=== PATIENT | male | born 1970 | race Caucasian/White ===

== ENCOUNTER → 2022-06-18 13:17 | Outpatient (BNVA) | payer BC, SELFPAY | PROVIDERS: Family Provider Nurse Practitioner Family; PCP Family Medicine; Visit Provider Emergency Medicine | DX: J02.9 Acute pharyngitis, unspecified (principal); J00 Acute nasopharyngitis [common cold]; J40 Bronchitis, not specified as acute or chronic | CPT/HCPCS: 87071; 87880 ==

== ENCOUNTER 2023-08-22 15:12 | Emergency (ER) | payer OTHER, BC, SELFPAY ==
[2023-08-22] VITALS (7 sets, daily range): BP systolic 110–139; BP diastolic 61–88; PULSE 72–100; RESP 16–18; TEMP 36.8; O2SAT 94–98; BMI 27.5
--- NOTE | 2023-08-22 16:09 | XRR_ITS ---
PROCEDURE INFORMATION: Exam: XR Chest Exam date and time: 08/22/2023 4:39 PM Age: 53 years old Clinical indication: Cough TECHNIQUE: Imaging protocol: Radiologic exam of the chest. Views: 1 view. COMPARISON: No relevant prior studies available. FINDINGS: Lungs: Low lung volumes with basilar atelectasis. No definitive consolidation. Pleural spaces: No pleural effusion or pneumothorax. Heart/Mediastinum: Unremarkable. No cardiomegaly. Bones/joints: No acute osseous abnormalities are seen. XR/XR chest 1V [id number] IMPRESSION: No acute cardiopulmonary disease.
[2023-08-22 17:08] LABS: Influenza A by IFA negative (Negative); Influenza B by IFA negative (Negative); SARS Covid-2 Antigen negative (Negative)
--- NOTE | 2023-08-22 18:15 | ECG_ITS ---
[facility] Test Date: 2023-08-22 Pat Name: Jay Pardo Department: Room: Gender: Male Complaint Adjuster: : 1970 Requested By: Jeremiah Singh Order Number: [id number] Maria Elena MD: Kate Grayson M.D. Measurements Intervals [place] Rate: 81 P: 57 VT: 153 QRS: 35 QRSD: 79 T: 25 QT: 347 QTc: 404 Interpretive Statements SINUS RHYTHM No previous ECG available for comparison Electronically Signed On 08-22-2023 19:58:35 CDT by Kate Grayson M.D. [id number]
[2023-08-22 19:00] LABS: Basophils # 0.1 10^3/uL (0.0-0.1); Basophils % 1.1 %; Eosinophils # 0.2 10^3/uL (0.0-0.8); Eosinophils % 1.5 %; Lymphocytes # 8.5 10^3/uL (0.8-4.8); Lymphocytes % 68.9 %; Mean Corpuscular HGB Conc 35.2 g/dL (30-55); Mean Corpuscular Hemoglobin 30.8 pg (27-33); Mean Corpuscular Volume 87.5 fl (82-101); Mean Platelet Volume 8.8 fL (7.4-10.4); Monocytes # 0.6 10^3/uL (0.2-0.9); Monocytes % 5.2 %; Neutrophils # 2.79 10^3/uL (1.8-7.7); Neutrophils % 22.7 %; Nucleated Red Blood Cells % 0 %; Platelet Count 227 10^3/cmm (157-399); Red Cell Distribution Width 12.4 % (12.1-15.1); White Blood Count 12.32 10^3/uL (3.29-11.43)
[2023-08-22] MEDS: sodium chloride 0.9% 500 ML 999 ML IV (19:00)
[2023-08-22 19:19] LABS: Troponin(5th) Baseline 7 ng/L (0-15)
[2023-08-22 19:42] LABS: Alanine Aminotransferase 86 U/L (0-41); Albumin Level 3.7 g/dL (3.5-5.2); Alkaline Phosphatase 131 U/L (40-130); Aspartate Amino Transferase 86 U/L (0-40); Blood Urea Nitrogen 11 mg/dL (6-20); Calcium 7.8 mg/dL (8.5-10.5); Carbon Dioxide 25 mmol/L (22-29); Chloride 97 mmol/L (98-107); Creatinine Clr Calc Pharmacy 105.5761; Globulin 2.5 g/dL (1.3-4.6); Glomerular Filtration Rate 88.3 mL/min (90-130); Glucose 120 mg/dL (65-115); NT Pro B Type Natriuretic Pept < 36 pg/mL (0-125); Osmolality Calculated 275 mOsm/kg (285-295); Sodium 132 mmol/L (136-145); Total Bilirubin 0.7 mg/dL (0.15-1.2); Total Protein 6.2 g/dL (6.6-8.7)
[2023-08-22 19:43] LABS: Anion Gap 14.3 (5-19); Potassium 4.3 mmol/L (3.5-5.1)
--- NOTE | 2023-08-22 19:53 | CTR_ITS ---
PROCEDURE INFORMATION: Exam: CT Chest Without Contrast; Diagnostic Exam date and time: 08/22/2023 8:07 PM Age: 53 years old Clinical indication: Abnormal findings; Abnormal diagnostic tests; Abnormal ekg; Cough and fever; Patient HX: Cough with fever and elevated wbc. ; Additional info: Cough fever TECHNIQUE: Imaging protocol: Diagnostic computed tomography of the chest without contrast. Radiation optimization: All CT scans at this facility use at least one of these dose optimization techniques: automated exposure control; mA and/or kV adjustment per patient size (includes targeted exams where dose is matched to clinical indication); or iterative reconstruction. COMPARISON: CR (CHEST, ) 08/22/2023 4:39 PM RADIATION DOSE METRICS: Total DLP (mGy-cm): 456.31 FINDINGS: Lungs: Breathing artifact significantly limits evaluation of the lungs, particularly lung bases. Moderate posterior lower lobe atelectatic change. No definitive consolidation. No pulmonary mass or obvious pulmonary nodules identified. Pleural spaces: No pleural effusion or pneumothorax. Heart: Mild cardiomegaly. No pericardial effusion or pericardial thickening. Coronary arteries: Mild coronary artery calcification. Lymph nodes: There are no enlarged mediastinal or axillary lymph nodes. The shawn are not well evaluated due to lack of intravenous contrast. Calcified mediastinal lymph nodes are noted. Vasculature: The aorta is normal in course and caliber. No significant atherosclerotic calcifications are present. Spleen: Calcified splenic granulomata are incidentally noted. Bones/joints: No acute osseous abnormalities are seen. Soft tissues: The soft tissues are within normal limits. CT/CT chest wo con [id number] IMPRESSION: 1. Moderate posterior lower lobe atelectatic change. 2. Old granulomatous disease. 3. No definitive evidence of acute cardiopulmonary disease.
[2023-08-22] MEDS: sodium chloride 0.9% 1,000 ML 999 ML IV (19:59)
--- NOTE | 2023-08-22 20:15 | ECG_ITS ---
[facility] Test Date: 2023-08-22 Pat Name: Jay Pardo Department: Room: Gender: Male Panel Wirer: : 1970 Requested By: Jeremiah Singh Order Number: [id number] Maria Elena MD: Kate Grayson M.D. Measurements Intervals [place] Rate: 73 P: 67 MD: 165 QRS: 33 QRSD: 90 T: 25 QT: 390 QTc: 432 Interpretive Statements SINUS RHYTHM Compared to ECG 08/22/2023 18:22:55 No significant changes Electronically Signed On 08-22-2023 20:22:14 CDT by Kate Grayson M.D. [id number]
[2023-08-22 21:02] LABS: Troponin 5 2HR 6.94 ng/L (0-15)
[2023-08-22 21:03] LABS: Troponin 5 2HR Delta -0.06 ABS# (0-10)
--- NOTE | 2023-08-22 21:35 | ED_ITS ---
HPI - General Adult 2 General: Chief complaint: General Medical Stated complaint: sob Time Seen by Provider: 08/22/23 16:46 History of Present Illness: 53-year-old seemingly healthy male that presents with fevers, chills, fatigue and malaise. Onset 2 weeks ago. Symptoms are not relenting. He seen a primary care without any change in his symptoms. Patient reports that symptoms began approximately 2 weeks ago. His coworker was ill just before. 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 He believes that this is what has caused his symptoms. He states he wakes up in the [place] with night sweats and his face is burning and he has fevers. He takes Tylenol without relief. He is sleeping more. Generally family is very concerned about him. Tmax 101.5 Denies tick bites Associated symptoms: Reports malaise; Deny chest pain, dyspnea or palpitations Review of Systems 2 Const: Reports: fever(s), chills, change in appetite, fatigue, malaise, night sweats, change in sleep pattern and daytime sleepiness ENMT: Reports: throat pain, nasal discharge, nasal congestion and other (losing voice ); Denies: ear or mastoid pain Card: Denies: chest pain, palpitations or irregular heart rhythm Resp: Reports: non-productive cough; Denies: dyspnea, productive cough or wheezing GI: Denies: abdominal pain or change in bowel habits Musc: Denies: neck pain or back pain Skin/Breast: Denies: pruritus Psych: Denies: anxiety, depression or suicidal ideation PFSH ED 2 PFSH: Social History Smoking and tobacco/nicotine status: never used tobacco/nicotine Physical Exam 2 Const: COMMON NORMALS: patient oriented x3 and alert EXAM LIMITATIONS: no altered mental status GENERAL APPEARANCE: cooperative O RIENTATION/CONSCIOUSNESS: Yes oriented to person and Yes oriented to place Eye: COMMON NORMALS: Equal, round and reactive pupils present and conjunctivae normal CONJUNCTIVA: Yes conjunctivae normal PUPIL: Yes Equal, round and reactive pupils present Resp: COMMON NORMALS: normal respiratory effort, No use of accessory muscles and clear to auscultation bilaterally EFFORT & INSPECTION: No respiratory distress AUSCULTATION: clear to auscultation bilaterally Cardio: COMMON NORMALS: regular rate, regular rhythm, S1 normal heart sound present, S2 normal heart sound present and Peripheral pulses 2+ throughout R ATE: regular rate RHYTHM: regular rhythm HEART SOUNDS: S1 normal heart sound present and S2 normal heart sound present PERIPHERAL PULSES: Peripheral pulses 2+ throughout Back/Pelvis: COMMON NORMALS: thoracic and lumbar spine normal to inspection Neuro: COMMON NORMALS: patient oriented x3 SENSORIUM/ORIENTATION: Yes alert, Yes oriented to person and Yes oriented to place CRANIAL NERVES: Yes CN normal except as noted GAIT: Yes Normal gait present Psych: APPEARANCE: Yes grossly normal ATTITUDE: Yes calm Course 2 Vital Signs: Vital signs: Vital Signs Temperature 98.3 F 08/22/23 15:29 Pulse Rate 72 08/22/23 20:30 Respiratory Rate 18 08/22/23 20:30 Blood Pressure 115/67 08/22/23 20:30 Pulse Oximetry 97 08/22/23 20:30 Oxygen Delivery Me thod Room Air 08/22/23 20:30 MDM - General Adult Medical Decision Making Patient was evaluated in the emergency department today for complaints of generalized malaise fatigue and fevers. Patient's had symptoms for the last 2 weeks. He has seen his primary care doctor who was at a loss. He was started on prednisone. patient has not felt any better. He still running fevers at night. here in the emergency department I got a CBC, CMP, EKG, troponin series. Chest x-ray and ultimately a CT of his chest was completed. He has bibasilar atelectasis but no consolidations. He has mildly elevated white count. He has been on 40 mg of prednisone for 5 days. I would anticipate it being higher. His liver enzymes are elevated as well. I have ordered a hepatitis panel and I have ordered a tick panel. These will take some time to work and allow the patient to discharge home. He is going to follow-up with his primary care doctor Thursday or Thursday to discuss further. Patient has been instructed to return to the emergency department for new, concerning, worsening symptoms Lab Data 08/22/23 18:51 08/22/23 18:51 Radiology Impressions Chest X-Ray 08/22/23 16:09 IMPRESSION: No acute cardiopulmonary disease. Chest CT 08/22/23 19:53 IMPRESSION: 1. Moderate posterior lower lobe atelectatic change. 2. Old granulomatous disease. 3. No definitive evidence of acute cardiopulmonary disease. Laboratory Results WBC 12.32 10^3/uL (3.29-11.43) H 08/22/23 18:51 RBC 4.80 10^6/uL (3.85-5.65) 08/22/23 18:51 Hgb 14.80 g/dL (11.27-16.99) 08/22/23 18:51 Hct 42.0 % (37-53) 08/22/23 18:51 MCV 87.5 fl (82-101) 08/22/23 18:51 MCH 30.8 pg (27-33) 08/22/23 18:51 MCHC 35.2 g/dL (30-55) 08/22/23 18:51 RDW 12.4 % (12.1-15.1) 08/22/23 18:51 Plt Count 227 10^3/cmm (157-399) 08/22/23 18:51 MPV 8.8 fL (7.4-10.4) 08/22/23 18:51 Neut % (Auto) 22.7 % 08/22/23 18:51 Lymph % (Auto) 68.9 % 08/22/23 18:51 Fisher % (Auto) 5.2 % 08/22/23 18:51 Eos % (Auto) 1.5 % 08/22/23 18:51 Baso % (Auto) 1.1 % 08/22/23 18:51 Neut # (Auto) 2.79 10^3/uL (1.8-7.7) 08/22/23 18:51 Lymph # (Auto) 8.5 10^3/uL (0.8-4.8) H 08/22/23 18:51 Fisher # (Auto) 0.6 10^3/uL (0.2-0.9) 08/22/23 18:51 Eos # (Auto) 0.2 10^3/uL (0.0-0.8) 08/22/23 18:51 Baso # (Auto) 0.1 10^3/uL (0.0-0.1) 08/22/23 18:51 Nucleated RBC % (auto) 0 % 08/22/23 18:51 Nucleated RBCs # 0.0 /100WBC 08/22/23 18:51 Sodium 132 mmol/L (136-145) L 08/22/23 18:51 Potassium 4.3 mmol/L (3.5-5.1) 08/22/23 18:51 Chloride 97 mmol/L (98-107) L 08/22/23 18:51 Carbon Dioxide 25 mmol/L (22-29) 08/22/23 18:51 Anion Gap 14.3 (5-19) 08/22/23 18:51 BUN 11 mg/dL (6-20) 08/22/23 18:51 Creatinine 0.9 mg/dL (0.7-1.2) 08/22/23 18:51 GFR Calculation 88.3 mL/min (90-130) L 08/22/23 18:51 Glucose 120 mg/dL (65-115) H 08/22/23 18:51 Calculated Osmolality 275 mOsm/kg (285-295) L 08/22/23 18:51 Calcium 7.8 mg/dL (8.5-10.5) L 08/22/23 18:51 Total Bilirubin 0.7 mg/dL (0.15-1.2) 08/22/23 18:51 AST 86 U/L (0-40) H 08/22/23 18:51 ALT 86 U/L (0-41) H 08/22/23 18:51 Alkaline Phosphatase 131 U/L (40-130) H 08/22/23 18:51 Troponin T Baseline 7 ng/L (0-15) 08/22/23 18:51 Troponin T 120 Minute 6.94 ng/L (0-15) 08/22/23 20:28 Delta Troponin T -0.06 ABS# (0-10) L 08/22/23 20:28 NT-Pro-B Natriuret Pep < 36 pg/mL (0-125) 08/22/23 18:51 Total Protein 6.2 g/dL (6.6-8.7) L 08/22/23 18:51 Albumin 3.7 g/dL (3.5-5.2) 08/22/23 18:51 Globulin 2.5 g/dL (1.3-4.6) 08/22/23 18:51 Influenza Type A Ag negative (Negative) 08/22/23 16:38 Influenza Type B Ag negative (Negative) 08/22/23 16:38 SARS-CoV-2 Ag (Rapid) negative (Negative) 08/22/23 16:38 All radiology interpretation(s) finalized by discharge Discharge Plan Discharge Patient Disposition: Home Clinical Impression: Transaminitis, Fever, low grade, Malaise and fatigue Condition: Stable Prescriptions: No Action acetaminophen [Tylenol] 325 mg capsule 325 mg PO QID PRN fluticasone propionate 50 mcg/actuation spray,suspension 1 spray intranasal DAILY PRN (Reason: allergy symptoms) Qty: 16 0RF Rx Instructions: administer into each nostril prednisone 20 mg tablet 40 mg PO daily Qty: 10 0RF Discharge Orders: Discharge ED (Routine); Ordered 08/22/23 Ordered By: Jeremiah Fritz Referrals: Eladio Dalton [Primary Care Provider] - Discharge Diet: Advance as tolerated Discharge Activity: Resume usual activity Activity Restrictions/Additional Instructions: As discussed, your liver enzymes are elevated. This could be from a number of reasons. Currently have a tick panel and hepatitis panel pending. I want you to avoid Tylenol for now. You can use ibuprofen or Motrin for pain and fevers. Avoid alcohol. Please follow-up with your doctor Thursday or Thursday. I have given you Thursday and Thursday off from work. This is because you need to follow-up with primary care. Stand Alone Forms: Work/School Release Coding Level of Care Code ED Contact Representative for Daly Rice
[2023-08-22 22:46] LABS: Hepatitis A Antibody IgM Non-Reactive (Nonreactive); Hepatitis B Core IgM Non-Reactive (Nonreactive); Hepatitis B Surface Antigen Non-Reactive (Nonreactive); Hepatitis C Virus Antibody Non-Reactive (Nonreactive)
[2023-08-24 16:45] LABS: Lyme AB Screen <0.90 index
[2023-08-27 16:50] LABS: E. Chaffeensis AB IGG <1:64; E. Chaffeensis AB IGM <1:20; RMSF IGG NOT DETECTED; RMSF IGM NOT DETECTED
== END 2023-08-22 22:14 | disposition home or self-care (01) ==
PROVIDERS: Emergency Medicine; Emergency Provider Nurse Practitioner; PCP Family Medicine
DX: R50.9 Fever, unspecified (principal); R74.01 Elevation of levels of liver transaminase levels; R53.81 Other malaise; R53.83 Other fatigue; Z11.52 Encounter for screening for COVID-19
CPT/HCPCS: 36415; 71045; 71250; 80053; 80074; 83880; 84484; 85025; 86618; 86666; 86757; 87426; 87804; 93005; 96360; 96361; 99285; J7030; J7040